=== PATIENT | female | born 1985 | race Caucasian/White ===

== ENCOUNTER 2020-10-24 07:55 | Emergency (ER) | payer MEDICAID ==
[~2020-10-24] VITALS: Ht 154.9 cm; Wt 63.0 kg
[2020-10-24] MEDS ORDERED: ACETAMINOPHEN 325MG TABLET PO ONE (08:15)
[2020-10-24] MEDS ORDERED: DEXAMETHASONE 4MG TABLET PO ONE (08:15)
[2020-10-24] MEDS ORDERED: KETOROLAC 15MG/ML VIAL IV ONE (08:15)
[2020-10-24] MEDS ORDERED: SODIUM CHLORIDE 0.9% 1,000 ML IV ONE (08:45)
[2020-10-24 09:14] LABS: BASOPHILS % 0.2 % (0.0-2.0); EOSINOPHILS % 0.3 % (0.0-5.0); HEMATOCRIT. 38.6 % (36.0-48.0); LYMPHOCYTES % 10.3 % (20.0-50.0); MEAN CORPUSCULAR HEMOGLOBIN 31.7 pg (28.0-32.0); MEAN CORPUSCULAR VOLUME 94.3 fL (81.0-99.0); MEAN PLATELET VOLUME 9.1 fl (7.4-10.4); MONOCYTES % 8.4 % (2.0-8.0); NEUTROPHILS % 80.8 % (40.0-76.0); PLATELET 173 x1000/uL (130-400); RED BLOOD CELL COUNT 4.09 mill/uL (4.2-5.4); RED CELL DISTRIBUTION WIDTH 13.3 % (11.6-14.6)
[2020-10-24 09:20] LABS: CHLORIDE 108 mEq/L (98-107)
[2020-10-24 09:20] LABS: CLARITY URINE CLEAR (CLEAR); COLOR URINE YELLOW (YELLOW); KETONES URINE NEGATIVE (NEGATIVE); LEUKOCYTE ESTERASE URINE NEGATIVE (NEGATIVE); NITRITE URINE NEGATIVE (NEGATIVE); OCCULT BLOOD URINE NEGATIVE (NEGATIVE); PH URINE 7.5 (4.5-8.0); PROTEIN URINE NEGATIVE (NEGATIVE); SPECIFIC GRAVITY URINE 1.007 (1.005-1.030); UROBILINOGEN URINE 0.2 E.U./dL (0.2-1.0)
[2020-10-24 09:25] LABS: PROTHROMBIN TIME 10.4 sec (9.6-11.0)
[2020-10-24 11:38] VITALS: BP 99/55
== END 2020-10-24 11:58 | disposition home or self-care (01) ==
LOC: ER 08:25
DX: J02.9 Acute pharyngitis, unspecified (principal); E86.0 Dehydration
CPT/HCPCS: 36415; 80053; 81003; 81025; 83690; 85025; 85610; 87070; 87077; 87430; 96361; 96374; 99283; J1885; J7030; J8540